=== PATIENT | female | born 1955 | race Caucasian/White ===

== ENCOUNTER 2020-05-06 10:14 | Emergency (ER) | payer OTHER, MEDICARE ==
[~2020-05-06] VITALS: Ht 172.7 cm; Wt 90.7 kg
[2020-05-06 11:21] VITALS: BP_SYST 135
--- NOTE | 2020-05-06 11:24 | NUR ---
TENT 3
--- NOTE | 2020-05-06 12:50 | NUR ---
EXAMINED BY DR. SMITH
[2020-05-06] MEDS ORDERED: MORPHINE 2 MG/ML INJ. SYRINGE IM ONE (13:00)
[2020-05-06] MEDS ORDERED: methocarbamoL 500 MG TABLET PO ONE (13:00)
[2020-05-06 14:00] VITALS: BP_SYST 135
--- NOTE | 2020-05-06 14:00 | NUR ---
Patient given written and verbal discharge instructions and verbalizes understanding. ER MD discussed with patient the results and treatment provided. Patient in stable condition. ID arm band removed. Rx of TRAMADOL, ROXAXIN, MOTRIN given. Patient educated on pain management and to follow up with PMD. Pain Scale 0/10. Opportunity for questions provided and answered. Medication side effect fact sheet provided.
== END 2020-05-06 14:00 | disposition home or self-care (01) ==
LOC: SED 11:25
DX: M54.42 Lumbago with sciatica, left side (principal); I10 Essential (primary) hypertension; E11.9 Type 2 diabetes mellitus without complications
CPT/HCPCS: 96372; 99283; J2270